=== PATIENT | female | born 1945 | race Hispanic/Latino ===

== ENCOUNTER → 2021-03-25 | Outpatient (CLI) | payer OTHER | LOC: MAMMO 12:38 | PROVIDERS: ATTEND Internal Medicine | DX: Z12.31 Encounter for screening mammogram for malignant neoplasm of breast (principal) | CPT/HCPCS: 77067 ==

== ENCOUNTER → 2021-04-14 | Outpatient (CLI) | payer OTHER | LOC: MAMMO 12:17 | PROVIDERS: ATTEND Internal Medicine | DX: R92.8 Other abnormal and inconclusive findings on diagnostic imaging of breast (principal) ==

== ENCOUNTER → 2022-02-06 | Outpatient (CLI) | payer OTHER ==
[~2022-02-06] MED LIST: IOPAMIDOL 370 MG/ML 100 ML INFUS..BTL INJ ONE
[2022-02-06 16:23] LABS: CREATININE, SERUM 0.6 mg/dL (0.57-1.11)
== END ==
LOC: CT 15:43
PROVIDERS: ATTEND Internal Medicine Gastroenterology
DX: R10.30 Lower abdominal pain, unspecified (principal); Z53.20 Procedure and treatment not carried out because of patient's decision for unspecified reasons
CPT/HCPCS: 36415; 74177; 82565; 84520; Q9967